=== PATIENT | female | born 1960 | race African-American/Black ===

== ENCOUNTER 2019-06-17 10:53 | Emergency (ER) | payer OTHER ==
[2019-06-17 11:21] VITALS: BP 158/69; PULSE 83; TEMP 98; BMI 34.3
[2019-06-17] MEDS ORDERED: LIDOCAINE 5% TOPICAL PATCH TP ONE (11:56)
[2019-06-17] MEDS ORDERED: LIDOCAINE 5% TOPICAL PATCH ONE (11:57)
--- NOTE | 2019-06-17 12:02 | PDOC ---
History of Present Illness - General Chief Complaint: Back Pain Stated Complaint: LOWER BACK PAIN Time Seen by Provider: 06/17/19 11:27 History Source: Patient Exam Limitations: No Limitations Past History - Travel Traveled outside of the country in the last 30 days: No Close contact w/someone who was outside of country & ill: No - Past Medical History Allergies/Adverse Reactions: Allergies Allergy/AdvReac Type Severity Reaction Status Date / Time aspirin Allergy Verified 06/17/19 11:21 Home Medications: Ambulatory Orders Emtricitabine/Tenofovir [Truvada] 1 tab PO DAILY 06/17/19 COPD: No - Psycho Social/Smoking Cessation Hx Smoking History: Never smoked Review of Systems - Review of Systems Able to Perform ROS?: Yes Comments:: 06/17/19 11:56 CONSTITUTIONAL: Absent: fever, chills, diaphoresis, generalized weakness, malaise, loss of appetite GASTROINTESTINAL: Absent: abdominal pain, abdominal distension, nausea, vomiting, diarrhea, constipation, melena, hematochezia GENITOURINARY: Absent: dysuria, frequency, urgency, hesitancy, hematuria, flank pain, genital pain MUSCULOSKELETAL: Present: low back pain Absent: arthralgia, joint swelling SKIN: Absent: rash, itching, pallor NEUROLOGIC: Absent: headache, focal weakness or paresthesias, dizziness, unsteady gait, seizure, mental status changes, bladder or bowel incontinence PSYCHIATRIC: Absent: anxiety, depression, suicidal or homicidal ideation, hallucinations. Is the patient limited [place] proficient: No *Physical Exam - Vital Signs Last Vital Signs Temp Pulse Resp BP Pulse Ox 98 F 83 18 158/69 99 06/17/19 11:18 06/17/19 11:18 06/17/19 11:18 06/17/19 11:18 06/17/19 11:18 - Physical Exam Comments: 06/17/19 11:56 GENERAL: Well developed, well nourished. Awake and alert. No acute distress. NECK: Supple. Full ROM MUSCULOSKELETAL TTP of the L paraspinous muscles, L3-L5. No midline tenderness. Negative straight leg raise testing.Normal range of motion at all joints. No bony deformities or tenderness. No CVA tenderness. EXTREMITIES: No cyanosis. No clubbing. No edema. No calf tenderness. SKIN: Warm and dry. Normal capillary refill. No rashes. No jaundice. NEUROLOGICAL: Alert, awake, appropriate. Cranial nerves 2-12 intact. No deficits to light touch and temperature in face, upper extremities and lower extremities. No motor deficits in the in face, upper extremities and lower extremities. Normoreflexic in the upper and lower extremities. Normal speech. Toes are down- going bilaterally. Gait is normal without ataxia. PSYCHIATRIC: Cooperative. Good eye contact. Appropriate mood and affect. 06/17/19 11:58 Medical Decision Making - Medical Decision Making 06/17/19 11:57 Patient is a 58-year-old female who presents to the ER with lower back pain for 2 days. She states that she works at [employer] and on Friday night she moved some heavy pallets of glass containers. She states when she woke up Friday morning she had pain on the left side of her back. She states that this morning she was unable to move she took some Tylenol with relief of symptoms. Denies fevers, chills, trauma, urinary symptoms, saddle anesthesia and bladder bowel incontinence. A/P: Back pain -Pt with TTP of the L paraspinous muscles, L3-L5, with palpable knot consistent with muscle spasm. No midline tenderness. Negative straight leg raise testing. -No trauma, or fever. No saddle anesthesia or bladder/bowel incontinence. No CVA tenderness. -Pt is neurologically intact on exam with no focal findings. -Toradol given with relief of symptoms -DC home. Ortho follow up given for if symptoms do not resolve. -I discussed the physical exam findings, ancillary test results and final diagnoses with the patient. I answered all of the patient's questions. The patient was satisfied with the care received and felt comfortable with the discharge plan and treatment plan. The Patient agrees to follow up with the primary care physician/specialist within 24-72 hours. Return precautions were given. Discharge - Discharge Information Problems reviewed: Yes Clinical Impression/Diagnosis: Low back pain Qualifiers: Chronicity: acute Back pain laterality: left Sciatica presence: without sciatica Qualified Code(s): M54.5 - Low back pain Condition: Stable - Admission No - Follow up/Referral Referrals: Leodan Quach MD, [facility] [Staff Physician] - - Patient Discharge Instructions Patient Printed Discharge Instructions: DI for Low Back Pain Additional Instructions: You have low back pain due to a muscle spasm. Please take Tylenol 650 mg every 4 hours not to exceed 4000 mg a day. You were also prescribed Robaxin. Please take this twice a day. Then take the medication before you go to bed. Do not drive after taking this medication as it may make you sleepy. You may use warm compresses on your back to help with her symptoms. Please follow-up with your primary care doctor. If your symptoms do not resolve in 3-5 days, follow-up with orthopedics. A referral has been provided for you. Return to the emergency department if you have worsening back pain, bladder or bowel incontinence, numbness and tingling in her legs, changes in the way you walk, or any new or worsening symptoms. - Post Discharge Activity Work/Back to School Note: Back to Work
== END 2019-06-17 12:19 | disposition home or self-care (01) ==
LOC: JERFT 10:53
DX: M62.830 Muscle spasm of back (principal); M54.5 Low back pain; X50.9XXA Other and unspecified overexertion or strenuous movements or postures, initial encounter; Y93.89 Activity, other specified; Y92.59 Other trade areas as the place of occurrence of the external cause; Y99.0 Civilian activity done for income or pay; Z88.6 Allergy status to analgesic agent
CPT/HCPCS: 99282-25

== ENCOUNTER 2023-06-04 08:00 | Day surgery (SDC) | payer OTHER ==
[2023-05-30 18:14] VITALS: BMI 34.0
[2023-06-04] MEDS ORDERED: CYCLOPENTOLATE 2% OPHTH SOLN 2 ML BOTTLE ONE (08:05)
[2023-06-04] MEDS ORDERED: TROPICAMIDE 1% OPHTH SOLN 15 ML BOTTLE ONE (08:05)
[2023-06-04] MEDS ORDERED: PHENYLEPHRINE 2.5% OPTHALMIC DROP 2ML BOTTLE ONE (08:05)
[2023-06-04] MEDS ORDERED: CIPROFLOXACIN HCL 0.3% OPHTH 2.5ML BOTTLE ONE (08:05)
[2023-06-04] MEDS ORDERED: BSS (NA/CA/MG/K) BALANCED SALT SOLUTION OPHTH SOLN 15 ML BOTTLE ONE (08:07)
[2023-06-04] MEDS ORDERED: NEO/POLYMYX B SULF/DEXAMETH OPHTHALMIC 5ML BOTTLE ONE (08:07)
[2023-06-04] MEDS ORDERED: CARBACHOL 0.01% INTRA-OCULAR 1.5 ML VIAL ONE (08:07)
[2023-06-04] MEDS ORDERED: LIDOCAINE 1% P/F 10 MG/ML VIAL ONE (08:07)
[2023-06-04] MEDS ORDERED: TETRACAINE 0.5% OPHTH SOLN 2 ML BOTTLE ONE (08:07)
[2023-06-04 08:49] VITALS: RESP 18
[2023-06-04] MEDS ORDERED: CIPROFLOXACIN 0.3% EYE DROPS 5 ML BOTTLE OS ONE ×3 (08:50→09:00)
[2023-06-04] MEDS ORDERED: CYCLOPENTOLATE 2% OPHTH SOLN 2 ML BOTTLE OS ONE ×3 (08:50→09:00)
[2023-06-04] MEDS ORDERED: PHENYLEPHRINE 2.5% OPHTH SOLN 15 ML BOTTLE OS ONE ×3 (08:50→09:00)
[2023-06-04] MEDS ORDERED: TROPICAMIDE 0.5% OPHTHALMIC SOLN 15 ML BOTTLE OS ONE ×3 (08:50→09:00)
[2023-06-04] MEDS ORDERED: MIDAZOLAM HCL 2 MG/2 ML SINGLE DOSE VIAL ONE (09:38)
[2023-06-04 10:07] VITALS: TEMP 97.6
[2023-06-04 10:38] VITALS: BP 137/61; PULSE 71
== END 2023-06-04 10:50 | disposition home or self-care (01) ==
LOC: FASU 08:00
PROVIDERS: ATTEND Ophthalmology
PROC: 08RK3JZ Replacement of Left Lens with Synthetic Substitute, Percutaneous Approach (ICD-10-PCS; principal; 2023-06-04 09:43)
DX: H26.8 Other specified cataract (principal)
CPT/HCPCS: 66984; V2632

== ENCOUNTER 2023-07-13 03:26 | Emergency (ER) | payer OTHER ==
[2023-07-13 03:48] VITALS: BP 137/75; PULSE 67; RESP 18; TEMP 98.2; BMI 34.0
[2023-07-13] MEDS ORDERED: LIDOCAINE 5% TOPICAL PATCH TP ONE (03:51)
[2023-07-13] MEDS ORDERED: LIDOCAINE 4% PATCH TP ONE (04:19)
[2023-07-13] MEDS ORDERED: ACETAMINOPHEN 500 MG TABLET (FP) PO ONE (04:58)
[2023-07-13] MEDS ORDERED: ACETAMINOPHEN 500 MG TABLET (FP) ONE (06:16)
[2023-07-13] MEDS ORDERED: LIDOCAINE PATCH REMOVAL MC ONE (16:00)
== END 2023-07-13 07:32 | disposition home or self-care (01) ==
LOC: JER 03:26
DX: M25.552 Pain in left hip (principal); M54.50 Low back pain, unspecified; X50.0XXA Overexertion from strenuous movement or load, initial encounter
CPT/HCPCS: 72070-TC-FY; 72100-TC-FY; 72170-TC-FY; 73502-TC-LT-FY; 99284-25